=== PATIENT | male | born 1955 | race Caucasian/White ===

== ENCOUNTER → 2022-12-16 10:55 | Outpatient (BNVA) | payer MEDICARE, MEDICAID, SELFPAY | PROVIDERS: Visit Provider Internal Medicine Cardiovascular Disease | DX: R07.89 Other chest pain (principal); R55 Syncope and collapse; R00.2 Palpitations; I10 Essential (primary) hypertension; R94.39 Abnormal result of other cardiovascular function study; F17.200 Nicotine dependence, unspecified, uncomplicated; R07.9 Chest pain, unspecified | CPT/HCPCS: 93005; 99205 ==

== ENCOUNTER 2023-01-21 14:11 | Outpatient (CLI) | payer MEDICARE, MEDICAID, SELFPAY ==
--- NOTE | 2023-01-21 14:15 | USCV_ITS ---
Nathaniel Desai Age: 67 Gender: M : 1955 Exam Date: 01/21/2023 14:23 Ordering Phys: Lyndsey Estrada MD ([email or web address]) Technologist: CT Exam [place] [facility] [place] Ind[place]: sob BP: 176 / 92 HR: 63 Rhythm: Sinus Technical Quality: Adequate MEASUREMENTS (Male / Female) Normal Values 2D ECHO LV Diastolic Diameter PLAX 4.7 cm 4.2 - 5.9 / 3.9 - 5.3 cm LV Systolic Diameter PLAX 3.5 cm IVS Diastolic Thickness 0.7 cm 0.6 - 1.0 / 0.6 - 0.9 cm IVS Systolic Thickness 1.5 cm LVPW Diastolic Thickness 1.3 cm 0.6 - 1.0 / 0.6 - 0.9 cm LVPW Systolic Thickness 1.9 cm LVOT Diameter 2.3 cm LV Ejection Fraction 2D Teich 40.2 % LV Ejection Fraction MOD 2C 67.1 % LV Ejection Fraction 2C AL 67.5 % LA Diameter 4.0 cm Aorta at Sinotubular Diameter 2.7 cm IVC Diameter 1.6 cm M-MODE Aortic Annulus Diameter 3.2 cm LA Ao Ratio MM 1.4 MV E Point Septal Separation 0.5 cm DOPPLER AV Peak Velocity 149.0 cm/s LVOT Peak Velocity 93.0 cm/s AV Area Cont Eq vti 3.2 cm squared AV Area Cont Eq pk 2.7 cm squared MV Peak Velocity 99.0 cm/s MV Area PHT 2.2 cm squared Mitral E to A Ratio 1.0 MV E' Velocity 36.0 cm/s Mitral E to MV E' Ratio 6.7 Mitral E to LV E' Lateral Ratio 5.4 Mitral E to LV E' Septal Ratio 8.8 TR Peak Velocity 62.0 cm/s TR Peak Gradient 1.5 mmHg TR Mean Velocity 0.0 cm/s TR Mean Gradient 0.0 mmHg TR Velocity Time Integral 0.0 cm Right Atrial Pressure 3.0 mmHg Pulmonary Artery Systolic Pressu 4.5 mmHg FINDINGS Left Ventricle Left ventricle is normal in size. LV systolic function is normal with EF of 55 to 60%. No regional wall motion abnormalities are seen. Right Ventricle Normal in size and function Right Atrium Normal in size Left Atrium Normal in size Mitral Valve Structurally normal mitral valve. Mild mitral regurgitation. Aortic Valve Structurally normal aortic valve. No significant stenosis or regurgitation. Tricuspid Valve Mild tricuspid regurgitation. Insufficient TR jet to calculate RVSP. Pulmonic Valve Not well visualized Pericardium Normal Aorta Normal in size IVC Appears to be normal CONCLUSIONS LV systolic function is normal with EF of 55 to 60%. Mild mitral regurgitation Mild tricuspid regurgitation No comparison studies are available Aashish Pringle MD (Electronically Signed) Final Date: 25 January 2023 17:23 S
== END 2023-01-21 14:12 | disposition home or self-care (01) ==
PROVIDERS: PCP Registered Nurse; Visit Provider Internal Medicine Cardiovascular Disease
DX: I08.1 Rheumatic disorders of both mitral and tricuspid valves (principal); R06.09 Other forms of dyspnea
CPT/HCPCS: 93005; 93306; 99205

== ENCOUNTER → 2023-03-06 10:14 | Outpatient (BNVA) | payer MEDICARE, MEDICAID, SELFPAY | PROVIDERS: PCP Registered Nurse; Visit Provider Internal Medicine Cardiovascular Disease | DX: R94.39 Abnormal result of other cardiovascular function study (principal); R00.2 Palpitations; I10 Essential (primary) hypertension; R07.9 Chest pain, unspecified | CPT/HCPCS: 99214 ==